=== PATIENT | male | born 1990 | race Caucasian/White ===

== ENCOUNTER 2017-09-26 09:48 | Emergency (ER) | payer OTHER ==
[~2017-09-26] VITALS: Ht 165.1 cm; Wt 113.4 kg
== END 2017-09-26 16:26 | disposition home or self-care (01) ==
LOC: ER 09:48
DX: K52.9 Noninfective gastroenteritis and colitis, unspecified (principal)

== ENCOUNTER → 2017-12-09 | Emergency (ER) | payer OTHER ==
[~2017-12-09] VITALS: Ht 165.1 cm; Wt 112.5 kg
== END | disposition left against medical advice (07) ==
LOC: ER 09:05
DX: B34.9 Viral infection, unspecified (principal)

== ENCOUNTER 2018-02-01 09:38 | Emergency (ER) | payer OTHER ==
[~2018-02-01] VITALS: Ht 165.1 cm; Wt 112.5 kg
== END 2018-02-01 10:24 | disposition home or self-care (01) ==
LOC: ER 09:38
DX: H66.91 Otitis media, unspecified, right ear (principal)

== ENCOUNTER 2018-02-11 16:19 | Emergency (ER) | payer OTHER ==
[~2018-02-11] VITALS: Ht 165.1 cm; Wt 112.9 kg
== END 2018-02-11 19:41 | disposition home or self-care (01) ==
LOC: ER 16:19
DX: J06.9 Acute upper respiratory infection, unspecified (principal); J32.8 Other chronic sinusitis

== ENCOUNTER 2018-09-14 22:43 | Emergency (ER) | payer OTHER ==
[~2018-09-14] VITALS: Ht 165.1 cm; Wt 111.1 kg
[2018-09-14] MEDS ORDERED: TILENOR (23:45)
[2018-09-15] MEDS ORDERED: CIPRO500 MG PO (03:16)
[2018-09-15] MEDS ORDERED: DOLOGESIC 500-1 EACH PO (03:16)
== END 2018-09-15 03:27 | disposition home or self-care (01) ==
LOC: ER 22:43
DX: N39.0 Urinary tract infection, site not specified (principal); R10.31 Right lower quadrant pain